=== PATIENT | female | born 2000 | race African-American/Black ===

== ENCOUNTER 2023-12-19 11:46 | Emergency (ER) | payer MEDICAID ==
[~2023-12-19] VITALS: Ht 154.9 cm; Wt 132.0 kg
[2023-12-19 12:04] VITALS: O2SAT 100
[2023-12-19] MEDS: PREDNISONE 20MG TABLET PO ONE (13:30)
[2023-12-19 14:10] VITALS: PULSE 65; RESP 11
[2023-12-19] MEDS: IPRATROPIUM/ALBUTEROL 0.5-3(2.5)MG/3ML NEB HHN ONE (14:10)
[2023-12-19] MEDS ORDERED: ALBU6.7H15 INH (15:41)
[2023-12-19] MEDS ORDERED: P50 MT (15:41)
[2023-12-19] MEDS ORDERED: AZIT250T12 MT (15:41)
[2023-12-19 15:54] VITALS: BP 124/77; PULSE 65; RESP 16; TEMP 36.83628; O2SAT 100
== END 2023-12-19 15:55 | disposition home or self-care (01) ==
LOC: ER 11:46
DX: O99.513 Diseases of the respiratory system complicating pregnancy, third trimester (principal); Z3A.00 Weeks of gestation of pregnancy not specified; Z98.890 Other specified postprocedural states
CPT/HCPCS: 71045; 94640; 99283; J7512; Z7610 ×3